=== PATIENT | male | born 1985 | race Hispanic/Latino ===

== ENCOUNTER → 2017-07-16 | Outpatient (CLI) | payer OTHER | END | disposition home or self-care (01) | LOC: RAH 12:42 | PROVIDERS: ATTEND Neurological Surgery | DX: M54.12 Radiculopathy, cervical region (principal); M79.601 Pain in right arm | CPT/HCPCS: 72141 ==

== ENCOUNTER 2018-03-15 05:35 | Day surgery (SDC) | payer OTHER ==
[~2018-03-15] VITALS: Ht 160 cm; Wt 104.3 kg
[2018-03-15] MEDS ORDERED: SODIUM CHLORIDE 0.9% 1000ML 1,000 ML IV ONE (05:55)
[2018-03-15 06:56] VITALS: BP 140/80
[2018-03-15] MEDS ORDERED: PROPOFOL 10 MG/ML 20ML VIAL IV ONE ×2 (07:34→07:51)
[2018-03-15] MEDS ORDERED: FENTANYL CITRATE PF 50 MCG/1 ML 2ML VIAL ONE (07:34)
[2018-03-15 08:03] VITALS: BP 96/47
[2018-03-15 08:07] VITALS: BP 99/45
[2018-03-15 08:12] VITALS: BP 106/55
[2018-03-15 08:18] VITALS: BP 126/62
[2018-03-15 08:21] VITALS: BP 128/95
== END 2018-03-15 08:41 | disposition home or self-care (01) ==
LOC: DAH 05:35 → ENDO 05:35
PROVIDERS: ATTEND Internal Medicine Gastroenterology
DX: K60.2 Anal fissure, unspecified (principal); K57.30 Diverticulosis of large intestine without perforation or abscess without bleeding; K64.9 Unspecified hemorrhoids; K64.0 First degree hemorrhoids; Z68.41 Body mass index [BMI] 40.0-44.9, adult; K31.7 Polyp of stomach and duodenum; K31.89 Other diseases of stomach and duodenum
CPT/HCPCS: 43239; 45380; A4606; J2704 ×2; J3010; J7030

== ENCOUNTER 2022-01-23 16:01 | Emergency (ER) | payer OTHER ==
[~2022-01-23] VITALS: Ht 157.5 cm; Wt 122.5 kg
[2022-01-23] MEDS ORDERED: MAGNESIUM 2GM PREMIX 50ML 50 ML IV ONE (16:22)
[2022-01-23] MEDS ORDERED: 0.9%NACL 1000ML 1,000 ML IV SCH (16:30)
[2022-01-23] MEDS ORDERED: IBUPROFEN 800 MG TAB PO ONE (16:30)
[2022-01-23] MEDS ORDERED: ACETAMINOPHEN 500 MG TABLET PO ONE (16:30)
[2022-01-23 16:43] LABS: BASOPHILS % (AUTO) 0.4 % (0.0-5.0); EOSINOPHILS % (AUTO) 0.4 % (0.0-8.0); HEMATOCRIT 39.5 % (42-54); LYMPHOCYTES % (AUTO) 23.1 % (21.0-51.0); MEAN CORPUSCULAR HEMOGLOBIN 27.6 pg (27.0-33.0); MEAN CORPUSCULAR HGB CONC 33.2 g/dL (32.0-36.0); MEAN CORPUSCULAR VOLUME 83.2 fL (79-99); MONOCYTES % (AUTO) 6.9 % (3.0-13.0); NEUTROPHILS % (AUTO) 68.7 % (40.0-77.0); PLATELET COUNT (AUTO) 278 K/uL (130-400); RED BLOOD CELL COUNT(AUTO) 4.75 MIL/uL (4.50-6.20); RED CELL DISTRIBUTION WIDTH 13.3 % (11.0-15.5); WHITE BLOOD COUNT (AUTO) 7.7 K/uL (4.8-10.8)
[2022-01-23 16:57] LABS: POTASSIUM 3.4 mmol/L (3.5-5.1)
[2022-01-23 16:58] LABS: APPEARANCE,URINE CLEAR (CLEAR); BILIRUBIN,URINE NEGATIVE (NEGATIVE); COLOR,URINE LIGHT-YELLOW (YELLOW); GLUCOSE, URINE (UA) NEGATIVE (NEGATIVE); KETONES,URINE NEGATIVE (NEGATIVE); LEUKOCYTE ESTERASE ,URINE NEGATIVE Leu/uL (NEGATIVE); NITRATE,URINE NEGATIVE (NEGATIVE); PROTEIN,URINE 20 mg/dL (NEGATIVE); UROBILINOGEN,URINE 0.2 mg/dL (0.2-1.0)
[2022-01-23 16:59] LABS: ALBUMIN 3.6 g/dL (3.5-5.0); CRP QUANTITATIVE 21.1 mg/L (0.00-9.0); TOTAL PROTEIN, SERUM 7.9 g/dL (6.0-8.3)
[2022-01-23 17:05] LABS: MUCUS,URINE RARE LPF (None Seen); WBC,URINE 0-1 /HPF (0-1)
[2022-01-23] MEDS ORDERED: NIFEDIPINE 10 MG CAP PO ONE (18:00)
[2022-01-23 18:20] VITALS: BP 142/72
== END 2022-01-23 18:23 | disposition home or self-care (01) ==
LOC: EDH 16:01
DX: B34.9 Viral infection, unspecified (principal); E86.0 Dehydration; R03.0 Elevated blood-pressure reading, without diagnosis of hypertension; E66.01 Morbid (severe) obesity due to excess calories; Z68.42 Body mass index [BMI] 45.0-49.9, adult; Z20.822 Contact with and (suspected) exposure to COVID-19
CPT/HCPCS: 99285; 96360; 71045; 87635; 82550; 80053; 85025; 87040 ×2; 87804 ×2; 83605; 86140; 81001; 36415; C9803; J7030; J3475